=== PATIENT | female | born 1945 | race Caucasian/White ===

== ENCOUNTER 2018-04-05 14:21 | Inpatient (IN) | payer OTHER ==
[2018-04-05] MEDS ORDERED: VANCOMYCIN/NS 1 gm 1 GM/250 ML BAG IVPB SCH (16:00)
[2018-04-05 16:14] LABS: Absolute Lymphocytes (CBC) 1.3 K/uL (0.7-4.9); Absolute Monocytes 0.5 K/uL (0.1-1.3); Absolute Neutrophil 5.5 K/uL (1.8-8.0); Basophils % 0.9 % (0-1.3); Eosinophils % 3.8 % (0-4.4); Hematocrit 38.5 % (36.0-45.0); Lymphocytes % 17.1 % (15.3-44.8); MPV 7.9 fL (7.6-11.3); Monocytes % 6.8 % (3.3-12.3); RBC Red Blood Cell Count 4.66 M/uL (3.86-4.86)
[2018-04-05 16:18] VITALS: BMI 45.7
[2018-04-05 16:44] LABS: Albumin 3.4 g/dL (3.4-5.0); Bilirubin Total 0.3 mg/dL (0.2-1.0); Magnesium 2.4 mg/dL (1.8-2.4); Potassium 4.6 mmol/L (3.5-5.1); Protein, Total 7.6 g/dL (6.4-8.2); Thyroid Stimulating Hormone 2.8 uIU/mL (0.360-3.740)
[2018-04-05] MEDS ORDERED: VANCOMYCIN 2 GM in NA CHLORIDE 0.9% 500 ML IVPB SCH (17:00)
[2018-04-05] MEDS: ENOXAPARIN 40 MG/0.4 ML SQ SCH (17:00)
[2018-04-05 17:20] LABS: Urine Appearance CLEAR; Urine Bilirubin NEGATIVE (NEG); Urine Blood NEGATIVE (NEG); Urine Color YELLOW; Urine Glucose NEGATIVE (NEG); Urine Protein NEGATIVE (NEG); Urine Urobilinogen 0.2 mg/dL (0.2-1.0)
[2018-04-05] MEDS: CEFTRIAXONE/SWI 1gm 1 GM/10 ML SYR IVP SCH (17:48)
[2018-04-05 18:14] LABS: Urine Microscopic Reflex NO UMIC
[2018-04-05] MEDS ORDERED: ACETAMINOPHEN 500 MG PO PRN (20:47)
[2018-04-06] MEDS: ACETAMINOPHEN 500 MG TAB PO PRN ×2 (00:26→13:33)
--- NOTE | 2018-04-06 05:07 | HP ---
Date of Admission: 04/05/2018 Chief Complaint: Left leg infection, fall and head injury. History Of Present Illness: This is a 72-year-old white female patient who fell down at home over the weekend on Thursday when she was getting a laundry bag in her hand and she was trying to walk this bag got stuck against the end of the table and she lost balance, fell down. When she fell down, she hit her head on the carpet, no loss of consciousness. Her son was able to help her to get up. The patient came into office today, has some right knee abrasion. Denies any headache, dizziness, nausea, vomiting. Her other problem is her cellulitis of left leg, which is not improving. Since December 03, 2017, she has been having this recurrent cellulitis of the left leg. So far, she was treated with 10 days of oral Levaquin, Bactrim for 10 days x2 different cycle and then 15 days cycle. The patient reports that every time she takes antibiotic she feels like her leg gets better, but not completely well. I saw her for the same problem on 03/24/2018, and at this time, we decided to give her Bactrim DS 1 tablet twice a day for 1 month. The patient reports having some fluid that drained from this left leg and once the fluid drains the pain subsides, but up until that point, she has some pain. Denies any fever, chills. After I saw her today, I noted that left leg cellulitis has gotten worse compared to what it was on 03/24/2018, so decision was made to admit her to hospital for IV antibiotic therapy with failure of oral antibiotic therapy. Past Medical History: Significant for hypertension, type 2 diabetes mellitus, mixed hyperlipidemia, aortic valve stenosis with regurgitation, gout. Past Surgical History: Significant for hysterectomy. Family History: Significant for hypertension, hyperlipidemia, ulcerative colitis. Allergies: PENICILLIN CAUSING RASH. Social History: Negative for smoking and alcohol use. Medications: Allopurinol 300 mg p.o. daily, aspirin 81 mg p.o. daily, Bactrim DS 1 tablet twice a day, Diovan HCT 160/12.5 mg 1 tablet p.o. daily, Meloxicam 15 mg p.o. daily as needed for arthritis. Review of Systems: Dermatology: As mentioned above. Musculoskeletal: As mentioned above. All other systems reviewed and negative. Physical Examination: Vital Signs: Temperature 96.8, pulse 77, respiratory rate 16, blood pressure 141/74. . General: Awake, alert, oriented, not in distress. HEENT: Head atraumatic, normocephalic. Conjunctivae nonerythematous. Sclerae white. Mouth, no thrush or edema noted. Ears/Nose, no mass, lesion, discharge noted. Neck: Supple. No JVD, lymph nodes, bruit, thyromegaly noted. Lungs: Bilateral good equal air entry. Clear to auscultation. No rhonchi. No rales. Heart: Normal heart sounds, no murmur or gallop. Abdomen: Soft, bowel sounds normal. No guarding, rigidity, tenderness, mass, hepatosplenomegaly, distention, or bruit noted. Extremities: Right anterior knee has small abrasion. Lower two-third of left leg has area of cellulitis with pink warm skin and this is worse compared to what it was on March 24, 2018. Left lower lateral leg has large area of dry discharge, no bleeding. Skin: Bruising center of the forehead and bilateral eyelids. Lymphatics: No lymph node enlargement in neck, supraclavicular, infraclavicular region. Neuro: No focal neurological deficit. Chest: Unremarkable. External Genitalia: Deferred. Rectal: Deferred. Laboratory Data: White count 7.7, hemoglobin 12.9, platelets 281. TSH 2.80. Procalcitonin 0.05. Sodium 137, potassium 4.6, chloride 105, bicarb 29, BUN 21 , creatinine 1.20, glucose 162. Liver function tests unremarkable. Urinalysis negative. Impression: 1. Left leg cellulitis. 2. Contusion, head and face. 3. Aortic valve stenosis with regurgitation. 4. Hypertension. 5. Mixed hyperlipidemia. 6. Vvk-xxjqcta-uobiscpxy diabetes mellitus. 7. Osteoarthritis, multiple sites. 8. Gout. Plan: Admit the patient to hospital for further evaluation and management of this problem. The patient is appropriate for inpatient and is expected to spend 2 midnights in hospital. We will go ahead and continue home medications per order. DVT prophylaxis will be given using Lovenox. We will get a CAT scan of the head done without contrast and we will start empiric antibiotic ceftriaxone and vancomycin. We will see her tomorrow for followup. We will consult general surgeon for left leg cellulitis, recurrent problem. Consult pharmacy to manage vancomycin dose. Details and plan of treatment discussed with her. AYDEN/MADHAV Voice ID: [id number] MTDD
--- NOTE | 2018-04-06 08:19 | RAD REPORT ---
EXAM DESCRIPTION: RAD - Chest Single View - 04/06/2018 4:58 am CLINICAL HISTORY: S/P PICC insertion COMPARISON: No comparisons FINDINGS: Portable chest was obtained following placement of a right upper extremity PICC line. The catheter tip projects over the SVC..
--- NOTE | 2018-04-06 09:27 | RAD REPORT ---
EXAM DESCRIPTION: CT - Head Brain Wo Cont - 04/06/2018 9:12 am CLINICAL HISTORY: fall, head injury Trauma, fall, head injury COMPARISON: No comparisons TECHNIQUE: All CT scans are performed using dose optimization technique as appropriate and may inclu de automated exposure control or mA/KV adjustment according to patient size. FINDINGS: No intracranial hemorrhage, hydrocephalus or extra-axial fluid collection.No areas of brai n edema or evidence of midline shift. The paranasal sinuses and mastoids are clear. The calvarium is intact. Small frontal scalp hematoma. IMPRESSION: No acute intracranial abnormality.
[2018-04-06] MEDS ORDERED: LIDOCAINE 1% MPF 30 ML VIAL SQ ONE (10:20)
[2018-04-06] MEDS: CEFTRIAXONE/SWI 1gm 1 GM/10 ML SYR IVP SCH ×2 (10:40→20:12)
[2018-04-06] MEDS: VALSARTAN HCTZ PO SCH (13:04)
[2018-04-06] MEDS: DOCUSATE 100 MG PO SCH (13:04)
[2018-04-06] MEDS: SILVER SULFADIAZINE 1% 50 GM TOP SCH (13:05)
--- NOTE | 2018-04-06 15:04 | CON ---
Date of Consultation: 04/06/2018 Reason: Left leg infection with wound. History Of Present Illness: The patient is a 72-year-old female, who fell this weekend and saw Dr. Horacio viveros. She has a wound on the left leg, which she has had since November, and has been treated with alan ral rounds of antibiotics including Bactrim and Levaquin. The wound had gotten worse and she had demetrius lulitis, and she was admitted for IV antibiotics. She does not have any fever or chills. She does n ot have sore throat, runny nose, cough, headaches, or dizziness. No nausea or vomiting. No fever or chills. No purulent discharge from the wound. There is some discomfort in the left leg. Review of Systems: Otherwise unremarkable. Past Medical History: Significant for hypertension, type 2 diabetes, hyperlipidemia, aortic valve st enosis with regurgitation, gout. Past Surgical History: Hysterectomy. Allergies: INCLUDE PENICILLIN. Social History: She does not smoke or drink. Family History: Significant for hypertension, hyperlipidemia, ulcerative colitis. Physical Examination: Vital Signs: Stable. She is afebrile. General: She is awake, alert, orient x3. Head and Neck: Cranial nerves 2 through 12 are grossly within normal limits. No neck masses. No JV D. Throat clear. Neck is supple. Chest: Clear. Heart: S1, S2. Abdomen: Soft. Extremity: Diminished. dorsalis pedis and posterior tibial pulses. There is circumferential erythem a on the left leg between the knee and the ankle. There is a wound on the lateral aspect, approximat calvin 10 x 10 cm, with crusted skin with some open areas. There is no purulent discharge. There appea rs to be partial thickness in nature. Laboratory Data: Her white count was 7.7. There is no left shift. Chemistry reviewed. Glucose is slightly elevated. Procalcitonin was 0.05. Assessment: A 72-year-old female with multiple medical problems with left leg cellulitis. Recommendations: I discussed the case with Dr. Abbott. We will continue her on IV antibiotics. I hav e asked the nurses to use surgical brush to clean the wound and then apply Silvadene. Tomorrow we wi ll proceed with a tissue biopsy at the bedside. The patient understands the risks, benefits, and alt ernatives and agrees to procedure. We will follow this patient while in the hospital. She is to fol low up with me [facility] upon discharge. ADAN/MADHAV Voice ID: [id number] Report ID: [id number]
[2018-04-06] MEDS: ENOXAPARIN 40 MG/0.4 ML SQ SCH (17:00)
--- NOTE | 2018-04-06 19:13 | PN ---
Date of Progress Note: 04/06/2018 Subjective: The patient was seen this morning for followup. No new complaints, problems reported by the patient. Lying in bed, not in distress. Objective: Vital Signs: Reviewed. HEENT: Examination unremarkable. Lungs: Clear to auscultation. Heart: Sounds normal. Abdomen: Soft, bowel sounds normal. No guarding, rigidity, tenderness, or distention. Extremities: Left leg area of cellulitis remains unchanged from yesterday. Has some drainage, which was noted on the gauze. Impression: 1.Cellulitis, left leg. 2.Hypertension. 3.Type 2 diabetes mellitus. Plan: We will continue current medication. Continue vancomycin, ceftriaxone. By tomorrow, if we do not see any improvement, we will consider changing the antibiotic. Today, her cellulitis remains un changed from yesterday. Details were discussed with Dr. Harris, and he will consider deep wound cultu re tomorrow. Today, he has suggested some debridement at the bedside. I will see her tomorrow for f kaushik. We will repeat blood work tomorrow morning. Ambulation was encouraged. The patient will h ave CAT scan of the head done today. We will continue DVT prophylaxis using Lovenox. AYDEN/MODL Voice ID: [id number] Report ID: [id number]
[2018-04-07 04:29] LABS: Absolute Lymphocytes (CBC) 2.1 K/uL (0.7-4.9); Absolute Monocytes 0.7 K/uL (0.1-1.3); Absolute Neutrophil 4.2 K/uL (1.8-8.0); Basophils % 0.9 % (0-1.3); Eosinophils % 5.7 % (0-4.4); Hematocrit 37.6 % (36.0-45.0); Lymphocytes % 28.1 % (15.3-44.8); MPV 7.8 fL (7.6-11.3); Monocytes % 9.5 % (3.3-12.3); RBC Red Blood Cell Count 4.51 M/uL (3.86-4.86)
[2018-04-07 04:38] LABS: Potassium 4.6 mmol/L (3.5-5.1)
[2018-04-07] MEDS ORDERED: VANCOMYCIN 2 GM in NA CHLORIDE 0.9% 500 ML IVPB SCH (05:00)
[2018-04-07] MEDS: SILVER SULFADIAZINE 1% 50 GM TOP SCH (09:00)
[2018-04-07] MEDS: DOCUSATE 100 MG PO SCH (09:51)
[2018-04-07] MEDS: CEFTRIAXONE/SWI 1gm 1 GM/10 ML SYR IVP SCH ×2 (09:52→20:43)
[2018-04-07] MEDS: VALSARTAN HCTZ PO SCH (09:52)
[2018-04-07] MEDS: ACETAMINOPHEN 500 MG TAB PO PRN ×2 (15:16→20:43)
[2018-04-07] MEDS: ENOXAPARIN 40 MG/0.4 ML SQ SCH (17:58)
--- NOTE | 2018-04-07 19:37 | PN ---
Date of Progress Note: 04/07/2018 Subjective: No complaint. Vital signs stable. Afebrile. The leg actually appears less erythematou s, decreased swelling, looks much better. Procedure note: The patient was prepped and draped in usual sterile fashion. Lidocaine 1% was infil trated locally, and then, at the edge of wound, 3 mm punch biopsy was done x2, one for wound culture and the other one for pathology. There was bleeding noted. Pressure was applied to control it. The patient tolerated the procedure, in stable condition. Sterile dressing was applied. Assessment: Left leg cellulitis with wound nonhealing and chronic infection. Recommendations: Discussed the care with Dr. Abbott. She will get at least 2 weeks of IV antibiotics. I can follow [facility], and the wound care as ordered. /MODL Voice ID: [id number] Report ID: [id number]
[2018-04-07] MEDS: HYDROCODONE/APAP 5/325 MG TAB PO PRN (23:52)
--- NOTE | 2018-04-08 01:12 | PN ---
Date of Progress Note: 04/07/2018 Subjective: The patient was seen this morning for followup. No new complaints or problems reported by her. Lying in bed, not in any distress. Objective: Vital Signs: Reviewed. HEENT: Unremarkable. Lungs: Clear to auscultation. Heart: Sounds normal. Abdomen: Soft. Bowel sounds normal. No guarding, rigidity, tenderness, or distention. Extremities: Left leg area of cellulitis looks better today compared to yesterday. Laboratory Data: White count 7.5, hemoglobin 12.7, platelets 246. Sodium 138, potassium 4.6, chlori de 105, bicarb 27, BUN 22, creatinine 0.80, glucose 106. Hemoglobin A1c 6.4. Impression: 1.Cellulitis, left leg. 2.Hypertension. 3.Type 2 diabetes mellitus. Plan: We will continue current medication. The patient is responding well to current IV antibiotic which is ceftriaxone and vancomycin. We will continue this antibiotics. I did discuss with the gema ent about discharge planning. Also discussed with Dr. Harris. He has released her to go home from hi s point of view whenever I am ready. I would continue current IV antibiotics while in the hospital a nd upon discharge from the hospital she should plan to take this IV antibiotics for 2 more weeks upon discharge. Consultation was requested from Social Service to help make arrangements for IV antibiot ics to be provided at home and my plan is to possibly discharge her to go home day after tomorrow which is on Thursday. Details and plan of treatment discus sed with the patient. AYDEN/MODL Voice ID: [id number] Report ID: [id number]
[2018-04-08] MEDS: VANCOMYCIN 2 GM in NA CHLORIDE 0.9% 500 ML IVPB SCH (06:01)
[2018-04-08] MEDS: HYDROCODONE/APAP 5/325 MG TAB PO PRN (06:41)
[2018-04-08] MEDS: SILVER SULFADIAZINE 1% 50 GM TOP SCH (09:00)
[2018-04-08] MEDS: DOCUSATE 100 MG PO SCH (09:56)
[2018-04-08] MEDS: VALSARTAN HCTZ PO SCH (09:57)
[2018-04-08] MEDS: CEFTRIAXONE/SWI 1gm 1 GM/10 ML SYR IVP SCH ×2 (09:57→20:21)
--- NOTE | 2018-04-08 14:09 | PN ---
Date of Progress Note: 04/08/2018 Subjective: Patient is awake and alert, no complaint. Vital signs stable. Afebrile. Wound appears better, redness is better, swelling is better. Cultures and pathology are pending. Assessment: Left leg cellulitis with nonhealing wound. Recommendations: Check cultures. Adjust antibiotics accordingly. The patient will need 2 weeks of IV antibiotics. Silvadene dressing daily. Follow up [facility] in 2 weeks. /MODL Voice ID: [id number] Report ID: [id number]
[2018-04-08] MEDS: ENOXAPARIN 40 MG/0.4 ML SQ SCH (18:09)
[2018-04-09] MEDS: HYDROCODONE/APAP 5/325 MG TAB PO PRN (00:35)
--- NOTE | 2018-04-09 02:46 | PN ---
Date of Progress Note: 04/08/2018 Subjective: The patient was seen this morning for followup lying in bed not in distress. Denies any new complaints. Objective: Vital Signs: Reviewed. Remains afebrile HEENT: Unremarkable. Lungs: Clear to auscultation. No rhonchi. No rales. Heart: Sounds normal. Abdomen: Soft. Bowel sounds normal. No guarding, rigidity, tenderness, or distention. Extremities: No leg edema. Left lower extremity cellulitis is significantly better I would say appr oximately it is about 50% better compared to what it was when she came into the hospital. Laboratory Data: Wound culture from 04/06/2018, growing Staphylococcus aureus and it is sensitive to oxacillin. It is also sensitive to vancomycin that she is on. Bactrim that the patient was on, on outpatient basis as well as she has also received Levaquin on outpatient basis. It is sensitive to a ll those different antibiotics. Impression: 1.Cellulitis, left leg. 2.Hypertension. Plan: We will go ahead and continue current medications. The patient is responding well to current IV antibiotic combination and plan is to continue this combination of antibiotic therapy upon dischar ge. Plan is to give her this 2 antibiotics for 2 weeks upon discharge. I will see her tomorrow for followup. dope worker is assisting patient for home IV antibiotic therapy. Possible discharge tomorrow if arrangements get completed. AYDEN/MODL Voice ID: [id number] Report ID: [id number]
[2018-04-09] MEDS: VANCOMYCIN 2 GM in NA CHLORIDE 0.9% 500 ML IVPB SCH (05:30)
[2018-04-09 06:00] LABS: Absolute Lymphocytes (CBC) 1.8 K/uL (0.7-4.9); Absolute Monocytes 0.8 K/uL (0.1-1.3); Absolute Neutrophil 4.9 K/uL (1.8-8.0); Basophils % 1.2 % (0-1.3); Eosinophils % 5.8 % (0-4.4); Hematocrit 38.7 % (36.0-45.0); Lymphocytes % 21.9 % (15.3-44.8); MPV 7.9 fL (7.6-11.3); Monocytes % 10.2 % (3.3-12.3); RBC Red Blood Cell Count 4.68 M/uL (3.86-4.86)
[2018-04-09 06:22] LABS: Magnesium 2.4 mg/dL (1.8-2.4); Potassium 4.1 mmol/L (3.5-5.1)
[2018-04-09] MEDS: SILVER SULFADIAZINE 1% 50 GM TOP SCH (09:00)
[2018-04-09] MEDS: CEFTRIAXONE/SWI 1gm 1 GM/10 ML SYR IVP SCH (09:16)
[2018-04-09] MEDS: DOCUSATE 100 MG PO SCH (09:16)
[2018-04-09] MEDS: VALSARTAN HCTZ PO SCH (09:17)
[2018-04-09 10:42] VITALS: O2SAT 97
[2018-04-09 13:25] VITALS: BP 100/53; TEMP 97
--- NOTE | 2018-04-10 10:32 | DS ---
Date of Discharge: 04/09/2018 Disposition: Discharged to go home. Physical Examination: HEENT: Unremarkable. Lungs: Clear to auscultation. Heart: Sounds normal. Abdomen: Soft. Bowel sounds normal. No guarding, rigidity, tenderness, or distention. Extremities: Left leg has cellulitis in the left lower extremity which is significantly better. Mos t of the cellulitis from left leg has improved significantly and there is still some area of dry skin with some cellulitis on the lower lateral leg, but overall I would say from the time of admission un til today her leg looks approximately 70% to 80% better. Laboratory Data: Last white count today 8, hemoglobin 13, platelets . Sodium 138, potassi um 4.1, chloride 104, bicarb 29, BUN 23, creatinine 0.80, glucose 117. Wound culture growing Staph a ureus, it is oxacillin sensitive. Hospital Course: A 72-year-old female patient admitted to the hospital with left leg cellulitis. Pl ease see dictated H and P for more information. The patient has ongoing problem with cellulitis of l eft leg since November of this year, and she has taken antibiotic 4 different times for this. Three ti mes it was Bactrim . While she was on the Bactrim this recently, her leg cellulitis has go tten worse, and after she came into office , decision was made to admit her to the hospital . She also had home and had some contusion over her face. CAT scan of the head was negat neli for any acute intracranial change. After she was admitted to the hospital, general surgeon was c onsulted. Wound culture was obtained and it grew Staph aureus. Debridement was done by a surgeon. Overall, the patient's condition has improved. Cellulitis has improved. PICC line was placed, and t he patient was started on IV ceftriaxone and IV vancomycin from the time of admission and this combin ation of antibiotic therapy has provided significant improvement, and our plan is to give 2 more week s of IV antibiotics at home. Social Service was consulted, and after all the arrangements gets compl eted, she will be discharged to go home today, and she will have home health to assist her with IV an tibiotics and blood draw, and the patient has received adequate teaching for home IV antibiotic use. Final Diagnoses: 1.Left leg cellulitis. 2.Contusion, head and face. 3.Aortic valve stenosis with regurgitation. 4.Hypertension. 5.Mixed hyperlipidemia. 6.Hsm-uaofjjg-khsuyimuc diabetes mellitus. 7.Osteoarthritis, multiple sites. 8.Gout. Discharge Medications And Instructions: 1.Continue all prior home medications. 2.Tylenol with Codeine 1 tablet by mouth 3 times a day as needed for pain. 3.IV Rocephin and IV vancomycin at current dose for 2 weeks. 4.Home health nurse to draw blood for CBC, chem-7, and vancomycin trough level with every third dose of vancomycin. 5.Flush PICC per protocol. 6.Change PICC line dressing per protocol. 7.Patient to follow with Dr. Harris next week and follow up at my office beginning of April 2018. 8.Patient was instructed to discontinue her oral antibiotic, Bactrim, which was prescribed to her pr ior to this hospitalization. AYDEN/MODL Voice ID: [id number] Report ID: [id number]
== END 2018-04-09 16:02 | disposition home health service (06) | DRG 603 ==
LOC: 2ND 14:59
PROVIDERS: ADMIT Internal Medicine; ATTEND Internal Medicine
PROC: 02HV33Z Insertion of Infusion Device into Superior Vena Cava, Percutaneous Approach (ICD-10-PCS; principal; 2018-04-06)
PROC: B548ZZA Ultrasonography of Superior Vena Cava, Guidance (ICD-10-PCS; 2018-04-06)
DX: L03.116 Cellulitis of left lower limb (principal); B95.61 Methicillin susceptible Staphylococcus aureus infection as the cause of diseases classified elsewhere; I35.0 Nonrheumatic aortic (valve) stenosis; I10 Essential (primary) hypertension; E78.2 Mixed hyperlipidemia; E11.9 Type 2 diabetes mellitus without complications; Z79.84 Long term (current) use of oral hypoglycemic drugs; M19.90 Unspecified osteoarthritis, unspecified site; M10.9 Gout, unspecified; S00.93XA Contusion of unspecified part of head, initial encounter; W01.0XXA Fall on same level from slipping, tripping and stumbling without subsequent striking against object, initial encounter; Y93.01 Activity, walking, marching and hiking; Y92.019 Unspecified place in single-family (private) house as the place of occurrence of the external cause; Z88.0 Allergy status to penicillin; S80.211A Abrasion, right knee, initial encounter
CPT/HCPCS: 36415; 70450; 71045; 80048; 80053; 80202; 81003; 83036; 83735; 84145; 84443; 85025; 87070; 87077; 87176; 87186; 87205; 88305; J0696; J1650

== ENCOUNTER 2020-10-26 15:40 | Emergency (ER) | payer OTHER ==
--- OUTSIDE RECORDS SUMMARY | 2020-10-26 15:44 | XMS REPORT | Continuity of Care Document ---
:1945 Author Organization [facility] t Address [address] [place] [address] Care Team Providers Name Role Phone Kimberly Abbott MD Primary Care Physician SAMUEL Attending Clinician Unavailable Sharda Herrera Attending Clinician Reinaldo Baker Attending Clinician Payers Payer Name Policy Type Policy Number Effective Date Expiration Date S lidya [employer] MEDICARE PPO [id number] 2013 00:00:00 Problems Condition Condition Condition Status Onset Resolution Last Treating Co mments Source Name Details Category Date Date Treatment Clinician Date WOUND Diagnosis Active 2020-10-18 Mem oria 6-30 09:54:00 l WOUND 00:00: [place] 00 Active 10/17/2020 [facility] Mark UNK Diagnosis Active 2020-09-10 Mem oria 08-16 05:31:00 l UNK 00:00: Mark 00 Active 08/16/2020 [facility] SOB SOB Disease Active 2018-04 [place] (shortness (shortness 1-12 Me thodi of breath) of breath) 00:00: st 00 Aortic Aortic Disease Active 2018-04 [place] valve valve 05-01 Methodi disorder disorder 00:00: st 00 Hypertensi Hypertensi Disease Active 2018-04 [place] on on 05-01 Methodi 00:00: st 00 Gout Problem Resolve 2020-10-20 Lew kehinde (disorder) d 00:10:08 l Gout Mark (disorder) Resolved Problem 10/20/2020 Christie Aguila [facility] Dyspnea on Problem Active 2020-10-20 M emoria exertion 00:10:08 l (finding) Dyspnea Herm amy on exertion (finding) Active Problem 10/20/2020 Christie Aguila [facility] Allergies, Adverse Reactions, Alerts Allergy Allergy Status Severity Reaction(s) Onset Inactive Treating Comm ents Source Name Type Date Date Clinician Penicill Propensi Active Rash 2018-04 [place] ins ty to 05-01 [facility] adverse 00:00: st reaction 00 s to drug penicill penicill Active Memori a ins<sup> ins<sup> l 1</sup> 1</sup> Mark Family History Family Member Diagnosis Comments Start Date Stop Date Source Natural father Valvular heart disease [place] [facility] Natural mother Hypertension [place] [facility] Social History Social Habit Start Date Stop Date Quantity Comments Source History [facility] Meth odist Alcohol Binge History [facility] Meth odist Alcohol Std Drinks Social History 2020-09-10 2020-09-10 [facility] jaylan 11:46:34 11:46:34 Tobacco use and 2019-03-01 2019-03-01 Never used Saurav Soriano ethodist exposure 00:00:00 00:00:00 Alcohol intake 2019-03-01 2019-03-01 [facility] thodist 00:00:00 00:00:00 non-drinker (finding) History SDOH 2019-03-01 2019-03-01 1 [place] Meth odist Alcohol Frequency 00:00:00 00:00:00 Sex [birth year] [place] Christie ethodist 00:00:00 00:00:00 Smoking Status Start Date Stop Date Source Never smoker [place] Doryis t Medications Ordered Filled Start Stop Current Ordering Indication Dosage Frequency Signature Comments Components Source Medication Medication Date Date Medication? Clinician (SIG) Name Name Calcium No 1,000 mL, Memor ia Chloride 5-23 Rate: 75 l 0.0014 21:16: ml/hr, Mark MEQ/ML / 00 Infuse Potassium over: 13.3 Chloride hr, Route: 0.004 IV, Dosing MEQ/ML / Weight Sodium 130.17 kg, Chloride Total 0.103 Volume: MEQ/ML / 1,000, Sodium Start Lactate date: 0.028 09/09/21 MEQ/ML 16:16:00 Injectable CDT, Solution Duration: 7 day, Stop date: 09/16/20 16:15:00 CDT, 2.49, m2, 0 Clindamycin No 900 mg, 50 Memoria 5-17 mL, Route: l 18:00: IVPB, Drug form: INJ, PRE OP, kg, Start date: 09/03/20 13:00:00 CDT, Duration: 1 day, Stop date: 09/04/20 12:59:00 CDT, ABX Indication : Surgical Prophylaxi s, 0 Vancomycin No 2000 mg: Me moria 5-17 infuse l 18:00: over 2.5 Mark 00 hours For adult patients only: Round to nearest 250 mg per Medical Staff approval MEDICATION WASTE Product Size: 1000 mg Product Wasted: ___ mg heparin No Notes: Memoria 5-17 porcine l 18:00: heparin [place] 00 Hydrochloro Yes 1 tab, PO, Memoria thiazide 5-17 Daily, 0 l 12.5 MG / 17:59: Refill(s) Her saldaña valsartan 00 160 MG Oral Tablet allopurinol Yes 300 mg = 1 Memoria 300 mg oral 5-17 tab, PO, l tablet 17:59: Daily, 0 [place] 00 Refill(s) meloxicam Yes 15 mg = 1 Mem oria 15 mg oral 5-17 tab, PO, l tablet 17:59: Daily, 0 [place] 00 Refill(s) Aspirin 81 Yes 81 mg = 1 Me moria MG Enteric 5-17 tab, PO, l Coated 17:59: Daily, # Mark Tablet 00 90 tab, 3 Refill(s) meloxicam 2018-04 Yes 15mg QD Take 15 mg [place] (MOBIC) 15 05-01 by mouth Metho di mg tablet 14:02: daily. st 26 aspirin 2018-04 Yes 81mg QD Take 81 mg [place] (ECOTRIN) 12 by mouth Method i 81 MG 14:02: daily. st enteric 26 coated tablet atorvastati 2018-04 No 20mg QD Take 1 E[place] st[place] n (LIPITOR) 05-01 11 tablet (20 M ethodi 20 MG 00:00: 23:59 mg total) st tablet 00 :00 by mouth daily. Default OP ins furosemide 2018-04- No 20mg QD Take 1 [place] (LASIX) 20 1-12 11-11 tablet (20 Me thodi mg tablet 00:00: 23:59 mg total) st 00 :00 by mouth daily. levoFLOXaci 2018-04 Yes 750mg QD Take 750 [place] n 1-04 mg by Methodi (LEVAQUIN) 00:00: mouth st 750 MG 00 daily. tablet valsartan-h 2018-04 Yes 1{tbl} QD Take 1 [place] ydrochlorot 1-02 tablet by Met hodlauren hiazide 00:00: mouth st (DIOVAN-HCT 00 daily. ) 160-12.5 mg per tablet FLUZONE 2018-04 Yes Saurav HIGH-DOSE 0-28 Methodi , 00:00: st PF, 180 00 mcg/0.5 mL syringe IM injection allopurinol 2018-04 Yes 300mg QD Take 300 [place] (ZYLOPRIM) 0-27 mg by Methodi 300 MG 00:00: mouth st tablet 00 daily. silver Yes APPLY BY Saurav sulfadiazin 9-17 TOPICAL Metho di e 00:00: ROUTE 2 st (SILVADENE) 00 TIMES 1 % cream EVERY DAY Vital Signs Vital Name Observation Time Observation Value Comments Source Respitory Rate 2020-09-10 15:00:00 Memori al [place] Systolic (mm Hg) 2020-09-10 15:00:00 Lew rial [place] Diastolic (mm Hg) 2020-09-10 15:00:00 Mem orial Mark Respitory Rate 2020-09-10 14:15:00 Memori al [place] Systolic (mm Hg) 2020-09-10 14:15:00 Lew rial [place] Diastolic (mm Hg) 2020-09-10 14:15:00 Mem orial [place] Temperature Oral (F) 2020-09-03 17:58:00 97.5 F [facility] [place] Heart Rate 2020-09-03 17:58:00 [facility] [place] Respitory Rate 2020-09-03 17:58:00 Memori al [place] Systolic (mm Hg) 2020-09-03 17:58:00 Lew rial Mark Diastolic (mm Hg) 2020-09-03 17:58:00 Omar morashantel Mark Height 2020-09-03 17:57:00 165.1 cm Mynor Flores Weight 2020-09-03 17:57:00 [facility] Mark BMI Calculated 2020-09-03 17:57:00 Dale Sandoval Procedures Procedure Date / Time Performed Performing Clinician Sourc e Hysterectomy 2002-04-20 00:00:00 Mynor saldaña Plan of Care Planned Activity Planned Date Details Comments Source Future Scheduled 2020-11-18 INFLUENZA VACCINE [place] [facility] 00:00:00 [code = INFLUENZA VACCINE] Future Scheduled 1993-11-20 COLONOSCOPY SCREENING [place] [facility] Test 00:00:00 [code = COLONOSCOPY SCREENING] Future Scheduled 1993-11-20 SHINGLES VACCINES (#1) [place] [facility] Test 00:00:00 [code = SHINGLES VACCINES (#1)] Future Scheduled 1961-11-20 Hepatitis C screening [place] [facility] 00:00:00 (procedure) [code = 281668080] Future Scheduled 1955 COVID-19 VACCINE (1) [place] [facility] Test 00:00:00 [code = COVID-19 VACCINE (1)] Future Scheduled 1949-11-20 65+ PNEUMOCOCCAL Mg [facility] Test 00:00:00 VACCINE (1 of 2 - PPSV23) [code = 65+ PNEUMOCOCCAL VACCINE (1 of 2 - PPSV23)] Encounters Start End Encounter Admission Attending Care Care Encounter Source Date/Time Date/Time Type Type Clinicians Facility Department ID 2020-10-11 [id number] [place] 01:03:32 [facility] 2020-09-12 [facility] [id number] [place] 15:05:41 [facility] 2020-09-10 Outpatient [facility] [id number] [place] 08:16:03 Health 2020-10-18 2020-10-18 Outpatient MHBL MHBL [id number] MHBL 09:46:00 09:46:00 2020-09-18 2020-10-17 Outpatient YI Herrera [id number] 11:15:00 23:59:00 Lorin Robin 2020-09-25 2020-09-25 Office JOSE Baker [facility] [id number] 11:10:38 11:33:02 Visit [facility] [id number] 2020-09-18 2020-09-18 Outpatient MHBL MHBL [id number] MHBL 11:15:00 11:15:00 2020-08-14 2020-09-12 Outpatient Javier, MHPL MHPL [id number] 14:45:00 23:59:00 Lorin 03 Sharda 2020-09-10 2020-09-10 Outpatient Samuel MHSE MHSE [id number] 05:31:00 10:10:00 Sixto Reinaldo 2020-09-10 2020-09-10 Outpatient Samuel, MHSE MHSE [id number] 07:30:00 07:30:00 Sixto Reinaldo 2020-09-10 2020-09-10 Outpatient MHSE MHSE [id number] MH 05:31:00 05:31:00 [facility] 2020-08-14 2020-08-14 Outpatient MHBL MHBL [id number] MHBL 14:45:00 14:45:00 2020-05-31 2020-06-29 Outpatient Javier, MHPL MHPL [id number] 08:12:00 23:59:00 Lorin Sharda 2020-05-31 2020-05-31 Outpatient MHBL MHBL [id number] MHBL 08:12:00 08:12:00 2020-04-26 2020-05-25 Outpatient Javier, MHPL MHPL [id number] 08:57:00 23:59:00 Lorin Sharda 2020-04-26 2020-04-26 Outpatient MHBL MHBL [id number] MHBL 08:57:00 08:57:00 2020-04-19 2020-04-19 Outpatient Javier, MHPL MHPL [id number] 08:09:00 20:00:00 Lorin Sharda 2020-04-19 2020-04-19 Outpatient MHBL MHBL [id number] MHBL 08:09:00 08:09:00 Results Test Description Test Time Test Comments Results Result Sour e Comments IMMUNOLOGY 2020-09-06 Not Detected Memorial 18:34:00 (09/06/20 1:34 Mark PM) BLOOD BANK RESULTS 2020-09-03 Negative Memori al 18:25:00 (09/03/20 1:25 [place] PM) CHEM PANEL 2020-09-03 114 Memorial 18:25:00 Mark CHEM PANEL 2020-09-03 27 Memorial 18:25:00 [place] CHEM PANEL 2020-09-03 0.78 Memorial 18:25:00 Mark CHEM PANEL 2020-09-03 141 Memorial 18:25:00 Mark CHEM PANEL 2020-09-03 4.8 Memorial 18:25:00 [place] CHEM PANEL 2020-09-03 104 Memorial 18:25:00 [place] CHEM PANEL 2020-09-03 33 Memorial 18:25:00 Mark CHEM PANEL 2020-09-03 9.6 Memorial 18:25:00 Mark CHEM PANEL 2020-09-03 8.8 Memorial 18:25:00 [place] CHEM PANEL 2020-09-03 74 Memorial 18:25:00 Mark HEMATOLOGY 2020-09-03 6.8 Memorial 18:25:00 [place] HEMATOLOGY 2020-09-03 5.61 Memorial 18:25:00 Mark HEMATOLOGY 2020-09-03 14.5 Memorial 18:25:00 [place] HEMATOLOGY 2020-09-03 46.1 Memorial 18:25:00 Mark HEMATOLOGY 2020-09-03 82.3 Memorial 18:25:00 Mark HEMATOLOGY 2020-09-03 18:25:00 Test Item Value Reference Range Interpretation Comme nts MCH (test code = MCH) 25.9 pg 27.0-31.0 [facility] [id number] 18:25:0031.5[facility] HermannHEMATOLOGY 2020-09-03 18:25:0017.0[facility] [id number] 18:25:57866Ytdaptmy HmaoxruCHWFAOPENH1835-26-25 18:25:007.9[facility] [id number] 18:25:00 Test Item Value Reference Range Interpretation Comments PT (test code = PT) 14.3 s 12.0-14.7 [facility] [id number] 18:25:00 Test Item Value Reference Range Interpretation Comments INR (test code = INR) 1.12 1 0.85-1.17 [facility] [id number] 18:25:00 Test Item Value Reference Range Interpretation Comments PTT (test code = PTT) 27.6 s 22.9-35.8 Memorial [id number] 18:25:0069.3[facility] HermannHEMATOLOGY 2020-09-03 18:25:0015.4[facility] [id number] 18:25:0010.4[facility] SarxtaiEEGAMUQPXH0515-25-58 18:25:004.1[facility] [id number] 18:25:000.8[facility] AuspwypMZQWHWEFZZ0108-83-06 18:25:004.7[facility] Mark [id number] 18:25:001.0[facility] [id number] 18:25:000.7 Memorial [id number] 18:25:000.3[facility] HermannHEMATOLOGY 2020-09-03 18:25:000.1[facility] Mark
[2020-10-26 16:23] LABS: Protime INR 1.13
[2020-10-26 16:36] LABS: Absolute Lymphocytes (CBC) 1.5 K/uL (0.7-4.9); Basophils % 0.8 % (0-1.3); Hematocrit 46.5 % (36.0-45.0); Lymphocytes % 18.8 % (15.3-44.8); MPV 8.5 fL (7.6-11.3); RBC Red Blood Cell Count 5.73 M/uL (3.86-4.86)
[2020-10-26 16:44] LABS: ALT/SGPT 19 U/L (12-78); Albumin 3.6 g/dL (3.4-5.0); Alkaline Phosphatase 98 U/L (45-117); BUN Blood Urea Nitrogen 28 mg/dL (7-18); Bicarbonate 32 mmol/L (21-32); Bilirubin Direct 0.3 mg/dL (0-0.2); Bilirubin Total 0.9 mg/dL (0.2-1.0); Glucose Level 122 mg/dL (74-106); NT PRO-BNP 844 pg/mL (<450); Protein, Total 8.1 g/dL (6.4-8.2); Sodium Level 139 mmol/L (136-145); Troponin (Emerg Dept Use Only) < 0.02 ng/mL (0.0-0.045)
[2020-10-26 16:45] LABS: AST/SGOT 27 U/L (15-37); Magnesium 2.1 mg/dL (1.8-2.4)
[2020-10-26] MEDS ORDERED: ATROPINE SULF 1 MG/10 ML SYR IV ONE (17:01)
[2020-10-26] MEDS ORDERED: NA CHLORIDE 0.9% 1,000 ML ONE (17:02)
[2020-10-26] MEDS ORDERED: FENTANYL CITR 100 MCG/2 ML ONE (17:13)
[2020-10-26] MEDS ORDERED: ONDANSETRON 4 MG/2 ML VIAL ONE (17:29)
--- NOTE | 2020-10-26 17:39 | RAD REPORT ---
EXAM DESCRIPTION: Ally Single View10/26/2020 4:04 pm CLINICAL HISTORY: Syncope COMPARISON: 2017 FINDINGS: Upper lobe vessels are prominent indicative of pulmonary venous hypertension. The lungs appear clear of acute infiltrate. The heart is moderately enlarged
--- NOTE | 2020-10-26 21:25 | EDPHYS ---
Physician Documentation [facility] Name: Janell White Age: 74 yrs Sex: Female : 1945 Arrival Date: 10/26/2020 Time: 15:43 Bed 2 Private MD: ED Physician Zach Sprague HPI: 10/26 15:46 This 74 yrs old Female presents to ER via EMS with complaints of Syncope. jmm 15:46 The patient has experienced syncope, collapsed. Onset: The symptoms/episode jmm began/occurred acutely, just prior to arrival. Duration: The patient has had multiple episodes. Associated injury: The patient did not suffer any apparent associated injury. Associated signs and symptoms: Pertinent negatives: chest pain, shortness of breath. This is a 74 year old female with a history of gout, htn that presents to the ED after a syncopal episode which occurred twice before arrival. Patient denies chest pain or shortness of breath. . Historical: - Allergies: 15:50 PENICILLINS; tw2 - Home Meds: 15:50 valsartan-hydrochlorothiazide oral [Active]; Allopurinol Oral [Active]; meloxicam oral tw2 [Active]; - PMHx: 15:50 Hypertensive disorder; Gout; tw2 - Immunization history:: Adult Immunizations. - Social history:: Smoking status: . ROS: 15:46 Constitutional: Negative for fever, chills, and weight loss, Cardiovascular: Negative jmm for chest pain, palpitations, and edema, Respiratory: Negative for shortness of breath, cough, wheezing, and pleuritic chest pain. 15:46 Neuro: Positive for syncope. 15:46 All other systems are negative. Exam: 15:46 Constitutional: This is a well developed, well nourished patient who is awake, alert, jmm and in no acute distress. Head/Face: atraumatic. Eyes: EOMI, no conjunctival erythema appreciated ENT: Moist Mucus Membranes Neck: Trachea midline, Supple Chest/axilla: Normal chest wall appearance and motion. Cardiovascular: Regular rate and rhythm. No edema appreciated Respiratory: Normal respirations, no respiratory distress appreciated Abdomen/GI: Non distended, soft Back: Normal ROM Skin: General appearance color normal MS/ Extremity: Moves all extremities, no obvious deformities appreciated, no edema noted to the lower extremities Neuro: Awake and alert, normal gait Psych: Behavior is normal, Mood is normal, Patient is cooperative and pleasant Vital Signs: 15:47 BP 152 / 67; Pulse 84; Resp 18; Temp 97.5(O); Pulse Ox 95% on R/A; tw2 16:39 BP 143 / 86; Pulse 33; Resp 16; Pulse Ox 95% on R/A; tw2 17:51 BP 139 / 77; Pulse 83; Resp 19; Pulse Ox 87% on 5 lpm NC; tw2 18:29 Pulse Ox 98% on 50% Venturi mask; sv 19:11 BP 143 / 82; Pulse 81; Resp 18; Pulse Ox 98% on Venturi mask; ak2 19:55 BP 137 / 64; Pulse 71; Resp 18; Pulse Ox 98% on 50% Venturi mask; Weight 124.74 kg; ak2 Height 5 ft. 5 in. (165.10 cm); 20:52 BP 128 / 76; Pulse 70; Resp 18; Pulse Ox 98% on 50% Venturi mask; ak2 22:25 BP 114 / 64; Pulse 77; Resp 20; Pulse Ox 100% on 50% Venturi mask; ak2 19:55 Body Mass Index 45.76 (124.74 kg, 165.10 cm) ak2 16:39 provider notified of heart block and rate at this time tw2 18:29 Pt noted to be mouth breathing while sleeping. Placed on a Venturi mask at 50%. sv MDM: 16:41 Patient medically screened. [facility] 21:20 Data reviewed: vital signs, nurses notes. ED course: Patient had a subsequent 2 jmm episodes of syncope in the ED. Patient was transiently bradycardic. Pacing pads placed. BP has been stable in the ED. I discussed the patient with Dr. Rayo and shot dropper at [facility] whom requesting dopamine drip. Patient is currently alert in the ED. . 10/26 15:46 Order name: Basic Metabolic Panel [facility] 10/26 15:46 Order name: CBC with Diff; Complete Time: 17: [facility] 10/26 15:46 Order name: LFT's; Complete Time: 17: [facility] 10/26 15:46 Order name: Magnesium; Complete Time: 17: [facility] 10/26 15:46 Order name: NT PRO-BNP; Complete Time: 17: [facility] 10/26 15:46 Order name: PT-INR; Complete Time: 17:09 [facility] 10/26 15:46 Order name: Troponin (emerg Dept Use Only); Complete Time: 17:09 [facility] 10/26 15:46 Order name: XRAY Chest (1 view); Complete Time: 18:20 [facility] 10/26 15:46 Order name: Basic Metabolic Panel; Complete Time: 17:09 [facility] 10/26 21:09 Order name: COVID-19 : Document "Date of Symptom Onset" if Symptomatic. em 10/26 15:46 Order name: EKG; Complete Time: 15:47 [facility] 10/26 15:46 Order name: Cardiac monitoring; Complete Time: 15:56 [facility] 10/26 15:46 Order name: EKG - Nurse/Tech; Complete Time: 16:39 [facility] 10/26 15:46 Order name: IV Saline Lock; Complete Time: 16:17 [facility] 10/26 15:46 Order name: Labs collected and sent; Complete Time: 16:17 [facility] 10/26 15:46 Order name: O2 Per Protocol; Complete Time: 15:56 [facility] 10/26 15:46 Order name: O2 Sat Monitoring; Complete Time: 15:56 jm Administered Medications: 16:54 Drug: fentaNYL (PF) 25 mcg {Note: RASS 0.} Route: IVP; Site: right hand; tw2 17:00 Follow up: Response: No adverse reaction tw2 16:55 Drug: NS 0.9% 500 ml Route: IV; Rate: bolus; Site: right hand; sv 17:35 Follow up: Response: No adverse reaction; IV Status: Completed infusion; IV Intake: tw2 500ml 17:10 Drug: Zofran (Ondansetron) 4 mg Route: IVP; Site: right hand; tw2 19:04 Follow up: Response: No adverse reaction; Nausea is decreased tw2 20:53 CANCELLED (high dose usedd): Dopamine drip 2 mcg/kg/min - (DOPamine 400 mg, D5W 250 ml) jm IV at calculated rate continuous; Titrate to keep systolic blood pressure greater than 90mmHg Disposition Summary: 10/26/20 21:24 Transfer Ordered Transfer Location: [facility] Reason: Higher level of care jm Condition: Stable jmm Problem: new jmm Symptoms: have improved jmm Accepting Physician: [facility](10/26/20 22:44) ak2 Diagnosis - Other specified heart block jmm Forms: - Medication Reconciliation Form jmm - SBAR form jm Addendum: 10/29/2020 07:37 Co-signature as Attending Physician, Zach Sprague MD I agree with the assessment and k dr plan of care. Signatures: Dispatcher [employer] EDEmily Wilcox, RN Zach Trejo MD MD [facility] Marques Hernandez PA PA lizziem Zulema Mcbride RN RN tw2 Robb Hernandez ak2 Corrections: (The following items were deleted from the chart) 10/26 20:12 16:34 Head Brain Wo Cont+CT.RAD.BRZ ordered. EDMS EDMS 20:53 19:53 Dopamine drip 2 mcg/kg/min - (DOPamine 400 mg, D5W 250 ml) IV at calculated rate jmm continuous; Titrate to keep systolic blood pressure greater than 90mmHg ordered. [facility] 21:39 21:09 CORONAVIRUS ordered. EDMS EDMS 22:44 21:24 [facility] ruth ak2
--- NOTE | 2020-10-26 21:25 | ER ---
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 reports when she woke up she was sitting on her bottom between the hotel beds. reports feeling fine and went on and drove herself to work. Coronavirus screen: At this time, the client does not indicate any symptoms associated with coronavirus-19. Ebola Screen: Patient denies travel to an Ebola-affected area in the 21 days before illness onset. Initial Sepsis Screen: Does the patient meet any 2 criteria? No. Patient's initial sepsis screen is negative. Does the patient have a suspected source of infection? No. Patient's initial sepsis screen is negative. Risk Assessment: Do you want to hurt yourself or someone else? Patient reports no desire to harm self or others. Onset of symptoms was October 26, 2020. Care prior to arrival: IV initiated. 20 GA, in the right antecubital area. 15:47 Method Of Arrival: EMS: [facility] tw2 15:47 Acuity: LLUVIA 3 tw2 16:30 Acuity: LLUVIA 1 sv Triage Assessment: 15:47 General: Appears in no apparent distress. obese, Behavior is calm, cooperative, tw2 appropriate for age. Pain: Denies pain. EENT: No signs and/or symptoms were reported regarding the EENT system. Neuro: Level of Consciousness is awake, alert, obeys commands, Oriented to person, place, time, situation. Cardiovascular: Capillary refill < 3 seconds Patient's skin is warm and dry. Respiratory: Airway is patent Respiratory effort is even, unlabored, Respiratory pattern is regular, symmetrical. GI: No signs and/or symptoms were reported involving the gastrointestinal system. Abdomen is round obese. : No signs and/or symptoms were reported regarding the genitourinary system. Derm: pt reports "i am being seen in wound care for the wounds to my lower legs after have a venous insufficiency surgery recently that is why they are wrapped". Musculoskeletal: Range of motion: intact in all extremities. Historical: - Allergies: 15:50 PENICILLINS; tw2 - Home Meds: 15:50 valsartan-hydrochlorothiazide oral [Active]; Allopurinol Oral [Active]; meloxicam oral tw2 [Active]; - PMHx: 15:50 Hypertensive disorder; Gout; tw2 - Immunization history:: Adult Immunizations. - Social history:: Smoking status: . Screenin:55 Abuse screen: Denies threats or abuse. Nutritional screening: No deficits noted. tw2 Tuberculosis screening: No symptoms or risk factors identified. Fall Risk Secondary diagnosis (15 points) impaired mobility. Assessment: 16:25 Reassessment: see triage assessment, provider at bedside at this time. tw2 16:40 Reassessment: Patient appears in no apparent distress at this time. Patient and/or tw2 family updated on plan of care and expected duration. Pain level reassessed. 16:51 Reassessment: noted cardiac rhythm change on monitor, ekg performed, providers brionna Navarrete and ALONSO Rousseau at bedside at this time preparing to pace pt. pt diaphoretic, pt placed on o2 at 2L nc at this time. 17:00 Reassessment: provider ALONSO Adames and ALONSO Mohan at bedside, external pads placed on pt. tw2 pt sat up in bed for posterior pad placement and pt noted to be sinus arrest approximately 5 seconds. pt HR noted to be in 30's shortly thereafter then returned to 80's. 18:00 Reassessment: Patient appears in no apparent distress at this time. Patient and/or tw2 family updated on plan of care and expected duration. Pain level reassessed. 19:11 General: Appears in no apparent distress. Pain: Denies pain. Neuro: No deficits noted. ak2 Cardiovascular: Respiratory: No deficits noted. 19:12 Reassessment: Patient and/or family updated on plan of care and expected duration. Pain ak2 level reassessed. 19:57 Reassessment: Patient and/or family updated on plan of care and expected duration. Pain ak2 level reassessed. 20:52 Reassessment: Patient and/or family updated on plan of care and expected duration. Pain ak2 level reassessed. 21:51 Reassessment: report given to life flight. rr5 21:55 General: report called to rn at [facility]. ak2 22:25 Reassessment: Patient and/or family updated on plan of care and expected duration. Pain ak2 level reassessed. Vital Signs: 15:47 BP 152 / 67; Pulse 84; Resp 18; Temp 97.5(O); Pulse Ox 95% on R/A; tw2 16:39 BP 143 / 86; Pulse 33; Resp 16; Pulse Ox 95% on R/A; tw2 17:51 BP 139 / 77; Pulse 83; Resp 19; Pulse Ox 87% on 5 lpm NC; tw2 18:29 Pulse Ox 98% on 50% Venturi mask; sv 19:11 BP 143 / 82; Pulse 81; Resp 18; Pulse Ox 98% on Venturi mask; ak2 19:55 BP 137 / 64; Pulse 71; Resp 18; Pulse Ox 98% on 50% Venturi mask; Weight 124.74 kg; ak2 Height 5 ft. 5 in. (165.10 cm); 20:52 BP 128 / 76; Pulse 70; Resp 18; Pulse Ox 98% on 50% Venturi mask; ak2 22:25 BP 114 / 64; Pulse 77; Resp 20; Pulse Ox 100% on 50% Venturi mask; ak2 19:55 Body Mass Index 45.76 (124.74 kg, 165.10 cm) ak2 16:39 provider notified of heart block and rate at this time tw2 18:29 Pt noted to be mouth breathing while sleeping. Placed on a Venturi mask at 50%. sv ED Course: 15:43 Patient arrived in ED. sv 15:45 Marques Hernandez PA is PHCP. jmm 15:45 Zach Sprague MD is Attending Physician. jmm 15:47 Zulema Mcbride, NIKITA is Primary Nurse. tw2 15:50 Triage completed. tw2 15:53 Bed in low position. Call light in reach. secured entrance monitor on. Pulse ox on. NIBP on. tw2 15:54 Arm band placed on. tw2 16:04 XRAY Chest (1 view) In Process Unspecified. EDMS 16:10 Inserted saline lock: 20 gauge in right wrist, using aseptic technique. Blood sv collected. Flushed right with 5 ml normal saline. 16:16 Basic Metabolic Panel Sent. sv 16:40 Inserted saline lock: 20 gauge in right antecubital area, using aseptic technique. sv Flushed right antecubital with 5 ml normal saline. 17:00 Warm blanket given. 5 17:00 EKG done, by ED staff, reviewed by Zach Sprague MD. [facility] 17:17 transfer center at [facility] called to initiate transfer. em1 18:15 transfer center at [facility] contacted for follow up and was informed that they are em1 still working on the transfer. 19:05 Report given to NIKITA Colin and NIKITA Zamudiowire transfer clerk initiated no acceptance at this time.tw2 19:23 Mylin with [facility] called back with their physician to do a consult with ALONSO Prescott, pt provider regarding the transfer request. 22:43 No provider procedures requiring assistance completed. ak2 Administered Medications: 16:54 Drug: fentaNYL (PF) 25 mcg {Note: RASS 0.} Route: IVP; Site: right hand; tw2 17:00 Follow up: Response: No adverse reaction tw2 16:55 Drug: NS 0.9% 500 ml Route: IV; Rate: bolus; Site: right hand; sv 17:35 Follow up: Response: No adverse reaction; IV Status: Completed infusion; IV Intake: tw2 500ml 17:10 Drug: Zofran (Ondansetron) 4 mg Route: IVP; Site: right hand; tw2 19:04 Follow up: Response: No adverse reaction; Nausea is decreased tw2 20:53 CANCELLED (high dose usedd): Dopamine drip 2 mcg/kg/min - (DOPamine 400 mg, D5W 250 ml) ruth IV at calculated rate continuous; Titrate to keep systolic blood pressure greater than 90mmHg Intake: 17:35 IV: 500ml; Total: 500ml. tw2 Outcome: 21:24 ER care complete, transfer ordered by . ruth 22:[address] [facility] [place], [place]. ak2 22:[address] [facility] [place], [place], Transfer form completed. 22:43 Condition: stable 22:44 Patient left the ED. ak2 Signatures: Dispatcher [employer] EDMS Emily Roblero RN RN sv Mickail, Joel, PA PA jmm Martinez, Eric em1 Zulema Mcbride RN RN tw2 Trina Girard 5 Cristi Taylor RN RN rr5 Jeremiah Borja tt3 Robb Hernandez ak2 Corrections: (The following items were deleted from the chart) 19:12 18:29 Pulse Ox 98% 02 15% Venturi mask; Pt noted to be mouth breathing while sleeping. sv Placed on a Venturi mask at 50%.; sv 20:02 19:55 BP 137 / 64; Pulse 71bpm; Resp 18bpm; Pulse Ox 98%; 124.74 kg; Height 5 ft. 5 ak2 in.; BMI: 45.7; ak2
[2020-10-26 22:50] VITALS: TEMP 97.5
[2020-10-26 22:59] VITALS: BP 114/64; O2SAT 100
--- NOTE | 2020-10-29 16:13 | EKG ---
Test Date: 2020-10-26 Test Time: 16:34:11 [employer] Supervisor: NORAH MEASUREMENT RESULTS: Intervals: Rate: 29 NE: QRSD: 138 QT: 606 QTc: 421 [place]: P: 47 NE: QRS: 105 T: 113 INTERPRETIVE STATEMENTS: Undetermined rhythm Rightward axis Nonspecific intraventricular block Cannot rule out Septal infarct, age undetermined Abnormal ECG No previous ECG available for comparison Electronically Signed On 10-29-20 16:05:39 CDT by Anson Barnes
--- NOTE | 2020-10-29 16:13 | EKG ---
Test Date: 2020-10-26 Test Time: 16:42:19 [employer] Supervisor: NORAH MEASUREMENT RESULTS: Intervals: Rate: 29 WI: QRSD: 130 QT: 646 QTc: 448 [place]: P: 59 WI: QRS: 98 T: 110 INTERPRETIVE STATEMENTS: Undetermined rhythm Rightward axis Nonspecific intraventricular block Abnormal ECG Compared to ECG 10/26/2020 16:34:11 Myocardial infarct finding no longer present Electronically Signed On 10-29-20 16:05:38 CDT by Anson Barnes
== END 2020-10-26 22:44 | disposition short-term general hospital (02) ==
LOC: ER 15:40
DX: I45.5 Other specified heart block (principal); I10 Essential (primary) hypertension; Z88.0 Allergy status to penicillin; Z20.822 Contact with and (suspected) exposure to COVID-19
CPT/HCPCS: 96361; 93005 ×2; 85025; 80048; 36415; 83735; 85610; 80076; 84484; 83880; 71045; 96375; 96374; 99291; 99292; U0003; J3010; J7030; J2405